=== PATIENT | male | born 1960 | race Caucasian/White ===

== ENCOUNTER 2018-11-21 19:45 | Emergency (ER) | payer MEDICAID ==
[2018-11-21 22:39] LABS: ADD MAN DIFF? NO
[2018-11-21 22:41] LABS: WHITE BLOOD COUNT 6.8 10^3/ul (4.8-10.8)
[2018-11-21 22:41] LABS: BASOPHILS % 0.4 % (0.0-2.0); EOSINOPHILS # 0.1 10^3/ul (0.0-0.5); EOSINOPHILS % 2.1 % (0.0-7.0); HEMATOCRIT 40.4 % (42.0-52.0); LYMPHOCYTES # 1.4 10^3/ul (0.8-2.9); LYMPHOCYTES % 20.3 % (15.0-51.0); MEAN CORPUSCULAR HEMOGLOBIN 31.5 pg (29.0-33.0); MEAN CORPUSCULAR HGB CONC 34.7 g/dl (32.0-37.0); MEAN PLATELET VOLUME 11.6 fl (7.4-10.4); MONOCYTE # 0.4 10^3/ul (0.3-0.9); MONOCYTES % 6.2 % (0.0-11.0); NEUTROPHIL # 4.8 10^3/ul (1.6-7.5); NEUTROPHILS % 70.9 % (39.0-77.0); PLATELET COUNT 217 10^3/UL (140-415); RED BLOOD COUNT 4.44 10^6/ul (4.70-6.10)
[2018-11-21] MEDS: FAMOTIDINE 20 MG TAB PO (22:46)
[2018-11-21] MEDS: LIDOCAINE/MYLANTA 40 ML BTL PO (22:46)
[2018-11-21] MEDS: ONDANSETRON 4 MG INJ IV (22:46)
[2018-11-21 22:58] LABS: ALANINE AMINOTRANSFERASE 13 IU/L (13-69); ALBUMIN 4.8 g/dl (3.3-4.9); ALBUMIN/GLOBULIN RATIO 1.26; ALKALINE PHOSPHATASE 106 IU/L (42-121); ANION GAP 16 (5-13); ASPARTATE AMINO TRANSFERASE 23 IU/L (15-46); BILIRUBIN,INDIRECT 0.4 mg/dl (0-1.1); BILIRUBIN,TOTAL 0.4 mg/dl (0.2-1.3); BLOOD UREA NITROGEN 21 mg/dl (7-20); CALCIUM 10.1 mg/dl (8.4-10.2); CARBON DIOXIDE 25 mmol/L (21-31); CHLORIDE 91 mmol/L (97-110); CREATININE 1.36 mg/dl (0.61-1.24); Estimated GFR 54 mL/min (>60); GLUCOSE 362 mg/dl (70-220); LIPASE 54 U/L (23-300); POTASSIUM 4.3 mmol/L (3.5-5.1); SODIUM 132 mmol/L (135-144); TOTAL PROTEIN 8.6 g/dl (6.1-8.1)
[2018-11-21 23:09] LABS: TROPONIN-I < 0.012 ng/ml (0.000-0.120)
[2018-11-22] MEDS: SOD CHLORIDE 0.9% 1,000 ML IV (01:53)
[2018-11-22 02:10] LABS: ADD UMIC NO; UR ASCORBIC ACID NEGATIVE (NEGATIVE); UR BILIRUBIN (Dip) NEGATIVE (NEGATIVE); UR BLOOD (Dip) NEGATIVE (NEGATIVE); UR CLARITY CLEAR (CLEAR); UR COLOR STRAW (YELLOW); UR GLUCOSE (Dip) 3+ mg/dL (NEGATIVE); UR KETONES (Dip) NEGATIVE (NEGATIVE); UR LEUKOCYTE ESTERASE (Dip) NEGATIVE Leu/ul (NEGATIVE); UR NITRITE (Dip) NEGATIVE (NEGATIVE); UR SPECIFIC GRAVITY (Dip) 1.015 (1.003-1.030); UR TOTAL PROTEIN (Dip) NEGATIVE (NEGATIVE); UR UROBILINOGEN (Dip) NEGATIVE (NEGATIVE)
== END 2018-11-22 03:21 | disposition home or self-care (01) ==
LOC: E/R 11-22 03:21
DX: R10.13 Epigastric pain (principal); R11.2 Nausea with vomiting, unspecified; I10 Essential (primary) hypertension; Z79.84 Long term (current) use of oral hypoglycemic drugs
CPT/HCPCS: 36415; 74176; 80053; 81003; 83690; 84484; 85025; 93005; 96374; 99285-25

== ENCOUNTER 2019-01-16 21:57 | Observation (INO) | payer MEDICAID ==
[2019-01-16 23:33] LABS: ADD MAN DIFF? NO
[2019-01-16 23:34] LABS: WHITE BLOOD COUNT 5.8 10^3/ul (4.8-10.8)
[2019-01-16 23:34] LABS: BASOPHILS % 0.5 % (0.0-2.0); EOSINOPHILS # 0.3 10^3/ul (0.0-0.5); HEMATOCRIT 35.7 % (42.0-52.0); HEMOGLOBIN 12.5 g/dl (14.0-18.0); LYMPHOCYTES # 1.8 10^3/ul (0.8-2.9); LYMPHOCYTES % 31.1 % (15.0-51.0); MEAN CORPUSCULAR HEMOGLOBIN 31.9 pg (29.0-33.0); MEAN CORPUSCULAR VOLUME 91.1 fl (82.0-101.0); MEAN PLATELET VOLUME 10.6 fl (7.4-10.4); MONOCYTE # 0.4 10^3/ul (0.3-0.9); MONOCYTES % 7.1 % (0.0-11.0); NEUTROPHIL # 3.2 10^3/ul (1.6-7.5); NEUTROPHILS % 56.1 % (39.0-77.0); PLATELET COUNT 207 10^3/UL (140-415); RED BLOOD COUNT 3.92 10^6/ul (4.70-6.10)
[2019-01-16 23:51] LABS: ALANINE AMINOTRANSFERASE 17 IU/L (13-69); ALBUMIN 4.1 g/dl (3.3-4.9); ALKALINE PHOSPHATASE 77 IU/L (42-121); ANION GAP 14 (5-13); ASPARTATE AMINO TRANSFERASE 20 IU/L (15-46); BILIRUBIN,INDIRECT 0.4 mg/dl (0-1.1); BILIRUBIN,TOTAL 0.4 mg/dl (0.2-1.3); BLOOD UREA NITROGEN 18 mg/dl (7-20); CALCIUM 9.1 mg/dl (8.4-10.2); CARBON DIOXIDE 25 mmol/L (21-31); CHLORIDE 97 mmol/L (97-110); CREATININE 1.44 mg/dl (0.61-1.24); Estimated GFR 51 mL/min (>60); GLUCOSE 365 mg/dl (70-220); LIPASE 43 U/L (23-300); POTASSIUM 4.5 mmol/L (3.5-5.1); SODIUM 136 mmol/L (135-144); TOTAL PROTEIN 7.5 g/dl (6.1-8.1)
[2019-01-17 00:03] LABS: B-TYPE NATRIURETIC PEPTIDE 311 PG/ML (0-125); TROPONIN-I < 0.012 ng/ml (0.000-0.120)
[2019-01-17] MEDS: ACETAMINOPHEN 325 MG TAB PO (01:43)
[2019-01-17] MEDS: ONDANSETRON 4 MG INJ IV (01:43)
[2019-01-17] MEDS ORDERED: ALBUTEROL/IPRATROPIUM (NEB) 3 ML AMP HHN (02:00)
[2019-01-17] MEDS ORDERED: ONDANSETRON 4 MG INJ IV (02:00)
[2019-01-17] MEDS ORDERED: NACL 0.9% 3 ML SYG IV (02:00)
[2019-01-17] MEDS ORDERED: ACETAMINOPHEN 325 MG TAB PO (02:00)
[2019-01-17] MEDS ORDERED: DEXTROSE 50% 50 ML SYRINGE IV ×2 (02:30)
[2019-01-17] MEDS ORDERED: GLUCOSE GEL 15 GRAM TUBE PO ×2 (02:30)
[2019-01-17] MEDS ORDERED: GLUCOSE GEL 15 GRAM TUBE BUCCAL (02:30)
[2019-01-17] MEDS ORDERED: GLUCAGON 1 MG INJ IM (02:30)
[2019-01-17 03:36] LABS: CREATINE KINASE 82 IU/L (23-200)
[2019-01-17 03:50] LABS: CK INDEX 1.9; CK-MB 1.58 ng/ml (0.0-2.4); TROPONIN-I < 0.012 ng/ml (0.000-0.120)
[2019-01-17] MEDS: NITROGLYCERIN (SL) 0.4 MG TAB SL (06:03)
[2019-01-17 06:06] LABS: ADD MAN DIFF? NO
[2019-01-17 06:15] LABS: BASOPHILS % 0.7 % (0.0-2.0); EOSINOPHILS # 0.3 10^3/ul (0.0-0.5); EOSINOPHILS % 5.9 % (0.0-7.0); HEMATOCRIT 29.4 % (42.0-52.0); HEMOGLOBIN 10.1 g/dl (14.0-18.0); LYMPHOCYTES # 1.6 10^3/ul (0.8-2.9); LYMPHOCYTES % 35.4 % (15.0-51.0); MEAN CORPUSCULAR HEMOGLOBIN 31.7 pg (29.0-33.0); MEAN CORPUSCULAR HGB CONC 34.4 g/dl (32.0-37.0); MEAN CORPUSCULAR VOLUME 92.2 fl (82.0-101.0); MEAN PLATELET VOLUME 11.1 fl (7.4-10.4); MONOCYTE # 0.4 10^3/ul (0.3-0.9); MONOCYTES % 9.4 % (0.0-11.0); NEUTROPHIL # 2.2 10^3/ul (1.6-7.5); NEUTROPHILS % 48.4 % (39.0-77.0); PLATELET COUNT 153 10^3/UL (140-415); RED BLOOD COUNT 3.19 10^6/ul (4.70-6.10)
[2019-01-17 06:15] LABS: WHITE BLOOD COUNT 4.6 10^3/ul (4.8-10.8)
[2019-01-17 06:34] LABS: HEMOGLOBIN A1C 10.4 % (0-5.9)
[2019-01-17 06:48] LABS: ALANINE AMINOTRANSFERASE 14 IU/L (13-69); ALBUMIN 4.4 g/dl (3.3-4.9); ALBUMIN/GLOBULIN RATIO 1.15; ALKALINE PHOSPHATASE 87 IU/L (42-121); ANION GAP 9 (5-13); ASPARTATE AMINO TRANSFERASE 21 IU/L (15-46); BILIRUBIN,INDIRECT 0.6 mg/dl (0-1.1); BILIRUBIN,TOTAL 0.6 mg/dl (0.2-1.3); BLOOD UREA NITROGEN 17 mg/dl (7-20); CALCIUM 9.4 mg/dl (8.4-10.2); CARBON DIOXIDE 28 mmol/L (21-31); CHLORIDE 101 mmol/L (97-110); CHOL/HDL RATIO 4.3 RATIO; CHOLESTEROL 216 mg/dl (100-200); CREATININE 1.31 mg/dl (0.61-1.24); Estimated GFR 56 mL/min (>60); GLUCOSE 327 mg/dl (70-220); HDL CHOLESTEROL 50 mg/dl (28-71); LDL CHOLESTEROL,CALCULATED 71 mg/dl; MAGNESIUM 1.9 mg/dl (1.7-2.5); POTASSIUM 4.6 mmol/L (3.5-5.1); SODIUM 138 mmol/L (135-144); TOTAL PROTEIN 8.2 g/dl (6.1-8.1); TRIGLYCERIDES 475 mg/dl (0-149)
[2019-01-17 08:41] LABS: CREATINE KINASE 77 IU/L (23-200)
[2019-01-17 08:52] LABS: CK INDEX 2.1; CK-MB 1.58 ng/ml (0.0-2.4); TROPONIN-I < 0.012 ng/ml (0.000-0.120)
[2019-01-17] MEDS: hydrALAzine 20 MG INJ IV (09:08)
[2019-01-17] MEDS: ASPIRIN 81 MG TAB PO (10:17)
[2019-01-17] MEDS: FAMOTIDINE 20 MG TAB PO (10:17)
[2019-01-17] MEDS: metFORMIN 500 MG TAB PO (10:18)
[2019-01-17] MEDS: HEPARIN 5,000 UNIT/1 ML VIAL SC ×2 (10:18→20:29)
[2019-01-17] MEDS: RANITIDINE 150 MG TAB PO ×2 (10:18→20:18)
[2019-01-17] MEDS: LINAGLIPTIN 5 MG TABLET PO (10:19)
[2019-01-17] MEDS: LISINOPRIL 5 MG TAB PO (10:19)
[2019-01-17] MEDS: SOD CHLORIDE 0.9% 1,000 ML IV (15:51)
[2019-01-17] MEDS: INSULIN ASPART [NOVOLOG] 3 ML PEN SC ×3 (17:39→20:19)
[2019-01-17] MEDS: BARIUM SULF 2% 450 ML BTL (BERRY SMOOTHIE) PO (20:17)
[2019-01-17] MEDS: FISH OIL 1,000 MG CAP PO (20:18)
[2019-01-17] MEDS: ATORVASTATIN 40 MG TAB PO (20:18)
[2019-01-17] MEDS: INSULIN GLARGINE [LANTus] (100 UNITS/ML) SYG SC (20:28)
[2019-01-18 05:31] LABS: ADD MAN DIFF? NO
[2019-01-18 05:37] LABS: WHITE BLOOD COUNT 6.6 10^3/ul (4.8-10.8)
[2019-01-18 05:37] LABS: BASOPHIL # 0.1 10^3/ul (0.0-0.1); BASOPHILS % 0.9 % (0.0-2.0); EOSINOPHILS # 0.4 10^3/ul (0.0-0.5); EOSINOPHILS % 6.3 % (0.0-7.0); HEMATOCRIT 36.7 % (42.0-52.0); HEMOGLOBIN 12.6 g/dl (14.0-18.0); LYMPHOCYTES # 2.3 10^3/ul (0.8-2.9); LYMPHOCYTES % 34.9 % (15.0-51.0); MEAN CORPUSCULAR HEMOGLOBIN 32.1 pg (29.0-33.0); MEAN CORPUSCULAR HGB CONC 34.3 g/dl (32.0-37.0); MEAN CORPUSCULAR VOLUME 93.6 fl (82.0-101.0); MEAN PLATELET VOLUME 11.1 fl (7.4-10.4); MONOCYTE # 0.6 10^3/ul (0.3-0.9); MONOCYTES % 9.1 % (0.0-11.0); NEUTROPHIL # 3.2 10^3/ul (1.6-7.5); NEUTROPHILS % 48.5 % (39.0-77.0); PLATELET COUNT 199 10^3/UL (140-415); RED BLOOD COUNT 3.92 10^6/ul (4.70-6.10); RED CELL DISTRIBUTION WIDTH 13.2 % (11.5-14.5)
[2019-01-18 05:59] LABS: CHOLESTEROL 181 mg/dl (100-200)
[2019-01-18 05:59] LABS: CHOL/HDL RATIO 4.4 RATIO; HDL CHOLESTEROL 41 mg/dl (28-71); LDL CHOLESTEROL,CALCULATED 45 mg/dl; TRIGLYCERIDES 476 mg/dl (0-149)
[2019-01-18] MEDS: SOD CHLORIDE 0.9% 1,000 ML IV ×2 (06:04→23:20)
[2019-01-18 06:12] LABS: TROPONIN-I < 0.012 ng/ml (0.000-0.120)
[2019-01-18 06:33] LABS: ANION GAP 6 (5-13); BLOOD UREA NITROGEN 22 mg/dl (7-20); CALCIUM 9.1 mg/dl (8.4-10.2); CARBON DIOXIDE 30 mmol/L (21-31); CHLORIDE 100 mmol/L (97-110); CREATININE 1.96 mg/dl (0.61-1.24); Estimated GFR 35 mL/min (>60); GLUCOSE 171 mg/dl (70-220); MAGNESIUM 1.9 mg/dl (1.7-2.5); PHOSPHORUS 4.4 mg/dl (2.5-4.9); POTASSIUM 4.3 mmol/L (3.5-5.1); SODIUM 136 mmol/L (135-144)
[2019-01-18] MEDS: INSULIN ASPART [NOVOLOG] 3 ML PEN SC ×7 (07:48→21:00)
[2019-01-18] MEDS: ASPIRIN 81 MG TAB PO (08:35)
[2019-01-18] MEDS: FISH OIL 1,000 MG CAP PO ×2 (08:35→21:14)
[2019-01-18] MEDS: LINAGLIPTIN 5 MG TABLET PO (08:35)
[2019-01-18] MEDS: RANITIDINE 150 MG TAB PO ×2 (08:36→21:14)
[2019-01-18] MEDS: LISINOPRIL 5 MG TAB PO (08:36)
[2019-01-18] MEDS: HEPARIN 5,000 UNIT/1 ML VIAL SC ×2 (08:38→21:22)
[2019-01-18] MEDS: REGADENOSON 0.4 MG/5 ML SYG (10:21)
[2019-01-18 16:09] LABS: ADD UMIC NO; UR ASCORBIC ACID NEGATIVE (NEGATIVE); UR BILIRUBIN (Dip) NEGATIVE (NEGATIVE); UR BLOOD (Dip) NEGATIVE (NEGATIVE); UR CLARITY CLEAR (CLEAR); UR COLOR YELLOW (YELLOW); UR GLUCOSE (Dip) 1+ mg/dL (NEGATIVE); UR KETONES (Dip) NEGATIVE (NEGATIVE); UR LEUKOCYTE ESTERASE (Dip) NEGATIVE Leu/ul (NEGATIVE); UR NITRITE (Dip) NEGATIVE (NEGATIVE); UR SPECIFIC GRAVITY (Dip) 1.009 (1.003-1.030); UR TOTAL PROTEIN (Dip) NEGATIVE (NEGATIVE); UR UROBILINOGEN (Dip) NEGATIVE (NEGATIVE)
[2019-01-18] MEDS: ATORVASTATIN 40 MG TAB PO (21:14)
[2019-01-18] MEDS: INSULIN GLARGINE [LANTus] (100 UNITS/ML) SYG SC (21:22)
[2019-01-19 00:53] LABS: ADD UMIC NO; UR ASCORBIC ACID NEGATIVE (NEGATIVE); UR BILIRUBIN (Dip) NEGATIVE (NEGATIVE); UR BLOOD (Dip) NEGATIVE (NEGATIVE); UR CLARITY CLEAR (CLEAR); UR COLOR STRAW (YELLOW); UR GLUCOSE (Dip) 1+ mg/dL (NEGATIVE); UR KETONES (Dip) NEGATIVE (NEGATIVE); UR LEUKOCYTE ESTERASE (Dip) NEGATIVE Leu/ul (NEGATIVE); UR NITRITE (Dip) NEGATIVE (NEGATIVE); UR SPECIFIC GRAVITY (Dip) 1.006 (1.003-1.030); UR TOTAL PROTEIN (Dip) NEGATIVE (NEGATIVE); UR UROBILINOGEN (Dip) NEGATIVE (NEGATIVE)
[2019-01-19 00:58] LABS: CREATININE,URINE RANDOM 55.04 mg/dl (20-370)
[2019-01-19 00:58] LABS: SODIUM,URINE RANDOM 55 mmol/L (30-90)
[2019-01-19] MEDS: SOD CHLORIDE 0.9% 1,000 ML IV (01:51)
[2019-01-19 06:13] LABS: ADD MAN DIFF? NO
[2019-01-19 06:24] LABS: WHITE BLOOD COUNT 5.9 10^3/ul (4.8-10.8)
[2019-01-19 06:24] LABS: BASOPHILS % 0.7 % (0.0-2.0); EOSINOPHILS # 0.5 10^3/ul (0.0-0.5); EOSINOPHILS % 7.7 % (0.0-7.0); HEMATOCRIT 37.2 % (42.0-52.0); HEMOGLOBIN 12.7 g/dl (14.0-18.0); LYMPHOCYTES # 1.8 10^3/ul (0.8-2.9); LYMPHOCYTES % 30.3 % (15.0-51.0); MEAN CORPUSCULAR HEMOGLOBIN 31.8 pg (29.0-33.0); MEAN CORPUSCULAR HGB CONC 34.1 g/dl (32.0-37.0); MEAN PLATELET VOLUME 11.4 fl (7.4-10.4); MONOCYTE # 0.6 10^3/ul (0.3-0.9); MONOCYTES % 10.1 % (0.0-11.0); NEUTROPHILS % 50.7 % (39.0-77.0); PLATELET COUNT 199 10^3/UL (140-415); RED CELL DISTRIBUTION WIDTH 13.2 % (11.5-14.5)
[2019-01-19 06:40] LABS: PHOSPHORUS 4.5 mg/dl (2.5-4.9)
[2019-01-19 06:40] LABS: MAGNESIUM 1.8 mg/dl (1.7-2.5)
[2019-01-19 06:42] LABS: ANION GAP 7 (5-13); BLOOD UREA NITROGEN 19 mg/dl (7-20); CALCIUM 9.2 mg/dl (8.4-10.2); CARBON DIOXIDE 29 mmol/L (21-31); CHLORIDE 102 mmol/L (97-110); CREATININE 1.53 mg/dl (0.61-1.24); Estimated GFR 47 mL/min (>60); GLUCOSE 152 mg/dl (70-220); POTASSIUM 4.5 mmol/L (3.5-5.1); SODIUM 138 mmol/L (135-144)
[2019-01-19] MEDS: INSULIN ASPART [NOVOLOG] 3 ML PEN SC ×4 (07:41→11:52)
[2019-01-19] MEDS: FISH OIL 1,000 MG CAP PO (08:50)
[2019-01-19] MEDS: LISINOPRIL 5 MG TAB PO (08:51)
[2019-01-19] MEDS: ASPIRIN 81 MG TAB PO (08:51)
[2019-01-19] MEDS: RANITIDINE 150 MG TAB PO (08:51)
[2019-01-19] MEDS: HEPARIN 5,000 UNIT/1 ML VIAL SC (09:00)
[2019-01-19] MEDS: METOPROLOL 25 MG TAB PO (11:56)
[2019-01-20 12:52] LABS: CREATININE, RANDOM URINE 57 mg/dL (20-320); MICROALBUMIN 2.1 mg/dL; MICROALBUMIN/CREATININE RATIO 37 (<30)
== END 2019-01-19 13:09 | disposition home or self-care (01) ==
LOC: E/R 21:57 → 6WM 01-17 01:21
DX: R07.89 Other chest pain (principal); I12.9 Hypertensive chronic kidney disease with stage 1 through stage 4 chronic kidney disease, or unspecified chronic kidney disease; E11.22 Type 2 diabetes mellitus with diabetic chronic kidney disease; N18.3 Chronic kidney disease, stage 3 (moderate); N17.9 Acute kidney failure, unspecified; E78.5 Hyperlipidemia, unspecified; D64.9 Anemia, unspecified; M89.9 Disorder of bone, unspecified; R53.81 Other malaise; R10.13 Epigastric pain; R19.7 Diarrhea, unspecified
CPT/HCPCS: 36415; 71045; 71046; 74018; 74176; 76775; 78452; 80048; 80053; 80061; 81003; 82043; 82550; 82553; 82962; 83036; 83690; 83735; 83880; 84100; 84155; 84300; 84443; 84484; 85025; 87045; 87075; 87086; 87205; 93005; 93017; 93306; 99285-25; G0378

== ENCOUNTER 2019-03-08 09:44 | Emergency (ER) | payer MEDICAID | END 2019-03-08 13:16 | disposition home or self-care (01) | LOC: FTE 09:44 | DX: Z48.01 Encounter for change or removal of surgical wound dressing (principal); I10 Essential (primary) hypertension; E11.9 Type 2 diabetes mellitus without complications; Z79.4 Long term (current) use of insulin | CPT/HCPCS: 99281; Z7502 ==